=== PATIENT | male | born 1960 | race African-American/Black ===

== ENCOUNTER 2019-04-04 09:47 | Inpatient (IN) ==
[2019-04-04] MEDS ORDERED: SODIUM CHLORIDE 0.9% 1,000 ML IV STA (10:23)
[2019-04-04 10:40] LABS: Basophils % 0.2 % (0.0-0.8); Hemoglobin 15.6 GM/DL (14.0-18.0); Immature Granulocytes % 0.5 %; Immature Granulocytes Absolute 0.09 #; Lymphocytes # 1.8 10*3/uL (1.4-4.0); Lymphocytes % 10.2 % (21.2-54.2); Mean Corpuscular HGB Conc 31.2 GM/DL (32-36); Mean Corpuscular Volume 94.3 FL (87-102); Mean Platelet Volume 10.6 FL (9.6-12.0); Monocytes % 7.7 % (1.7-12.7); Neutrophils % 81.4 % (38.7-73.9); Platelet Count 247 T/CUMM (130-400); Red Cell Distribution Width 13.5 % (9.3-17.3); White Blood Count 17.4 T/CUMM (4-12)
[2019-04-04] MEDS ORDERED: INSULIN REGULAR 100 UNIT/ML IV STA (10:58)
[2019-04-04 11:00] LABS: Alanine Aminotransferase 23 U/L (16-61); Albumin 4.3 G/DL (3.4-5.0); Alkaline Phosphatase 130 U/L (45-117); Aspartate Amino Transferase 46 U/L (0-37); Blood Urea Nitrogen 47 MG/DL (7-18); Estimated Glom Filtration Rate 42 ML/MIN; Osmolality,Calculated 356.3 MOS/KG (273-304); Total Protein 9.7 G/DL (6.4-8.3)
[2019-04-04 11:02] LABS: Glucose 783 MG/DL (74-106)
[2019-04-04 11:21] LABS: Apearance,Urine CLOUDY (Clear); Bacteria,Urine Many /HPF (Few); Bilirubin,Urine Negative (Negative); Blood, Urine Large mg/dL (Negative); Glucose,Urine (UA) >=500 mg/dL (Negative); Ketones,Urine 20 mg/dL (Negative); Mucus,Urine Occasional /LPF (Occasional); Nitrite,Urine Negative (Negative); Protein,Urine 100 MG/DL; RBC,Urine 14 /HPF (0-4); Squamous Epithelial Cell,Urine Occasional /HPF (0-10); Urine Color Yellow (Yellow); Urine Urobilinogen < 2.0 EU/DL (0.2-1.0); WBC,Urine 129 /HPF (0-6)
[2019-04-04] MEDS ORDERED: SODIUM CHLORIDE 0.9% 3,650 ML IV ONE (11:35)
[2019-04-04] MEDS: PIPERACILLIN/TAZOBACTAM 3,375 MG in SODIUM CHLORIDE 0.9% 100 ML IV SCH ×2 (11:51→21:03)
[2019-04-04] MEDS ORDERED: MAGNESIUM SULF RIDER 4 GM in PREMIX 1 EACH IV PRN (12:57)
[2019-04-04] MEDS ORDERED: DEXTROSE 10% 1,000 ML BAG IV PRN (12:57)
[2019-04-04] MEDS ORDERED: SODIUM BICARB INJ 100 MEQ in STERILE WATER INJ 400 ML IV PRN (12:57)
[2019-04-04] MEDS ORDERED: MAGNESIUM SULF RIDER 2 GM in PREMIX 1 EACH IV PRN (12:57)
[2019-04-04] MEDS ORDERED: DEXTROSE 10% 250 ML BAG IV PRN (12:57)
[2019-04-04] MEDS ORDERED: levETIRAcetam 500 MG TABLET PO SCH (13:30)
[2019-04-04] MEDS: SODIUM CHLORIDE 0.45% 1,000 ML IV SCH ×3 (13:43→21:27)
[2019-04-04] MEDS ORDERED: PHENobarbital 30 MG TABLET PO SCH ×2 (14:00→21:00)
[2019-04-04] MEDS: cefTRIAXone 1,000 MG in SYRINGE 1 EACH IV SCH (14:08)
[2019-04-04] MEDS: ENOXAPARIN 30 MG/0.3 ML SYRINGE SUBCUT SCH (14:08)
[2019-04-04] MEDS: INSULIN REGULAR DRIP 100 ML IV SCH ×2 (14:18→23:13)
[2019-04-04] MEDS: LACTULOSE 20 GM/30 ML UDCUP PO SCH ×2 (14:19→21:04)
[2019-04-04] MEDS: carBAMazepine 200 MG TABLET PO SCH ×2 (14:40→21:04)
[2019-04-04] MEDS: PHENobarbital 65 MG/1 ML VIAL IV SCH (15:00)
[2019-04-04 15:11] LABS: Calcium 8.4 MG/DL (8.5-10.1)
[2019-04-04] MEDS ORDERED: POTASSIUM CHLORIDE IV ONE (16:00)
[2019-04-04] MEDS ORDERED: SODIUM CHLORIDE 0.9% IV ONE (16:00)
[2019-04-04 16:09] LABS: ABG Base Excess -4.4 MMOL/L (-2.5-2.5); ABG HCO3 21.3 MMOL/L (20-26); ABG Oxygen Saturation 94.7 % (95-100); ABG PCO2 41.8 MM HG (35-48); ABG PH 7.326 (7.35-7.45); ABG PO2 85.3 MM HG (80-95); ABG TCO2 22.6 MMOL/L (23-27); Allen Test Positive
[2019-04-04] MEDS ORDERED: POTASSIUM CHLORIDE INJ 50 MEQ in SODIUM CHLORIDE 0.9% 500 ML IV ONE (18:00)
[2019-04-04 18:51] LABS: Calcium 9.6 MG/DL (8.5-10.1); Osmolality,Calculated 341.9 MOS/KG (273-304)
[2019-04-04] MEDS ORDERED: PHENobarbital 65 MG/1 ML VIAL IV SCH (21:00)
[2019-04-04 21:21] LABS: Calcium 7.7 MG/DL (8.5-10.1)
[2019-04-04] MEDS ORDERED: POTASSIUM CHLORIDE INJ 40 MEQ in SODIUM CHLORIDE 0.9% 380 ML IV ONE (23:00)
[2019-04-05] MEDS: SODIUM CHLORIDE 0.45% 1,000 ML IV SCH (01:31)
[2019-04-05 02:10] LABS: Calcium 8.7 MG/DL (8.5-10.1); Osmolality,Calculated 335.3 MOS/KG (273-304)
[2019-04-05] MEDS: PIPERACILLIN/TAZOBACTAM 3,375 MG in SODIUM CHLORIDE 0.9% 100 ML IV SCH (04:14)
[2019-04-05 04:21] LABS: Basophils % 0.2 % (0.0-0.8); Hematocrit 42.9 VOL% (42.0-52.0); Hemoglobin 13.3 GM/DL (14.0-18.0); Immature Granulocytes % 0.3 %; Immature Granulocytes Absolute 0.05 #; Lymphocytes # 2.7 10*3/uL (1.4-4.0); Lymphocytes % 16.7 % (21.2-54.2); Mean Corpuscular Volume 95.3 FL (87-102); Mean Platelet Volume 10.5 FL (9.6-12.0); Monocytes % 8.9 % (1.7-12.7); Neutrophils % 73.9 % (38.7-73.9); Platelet Count 137 T/CUMM (130-400); Red Cell Distribution Width 13.7 % (9.3-17.3); White Blood Count 16.1 T/CUMM (4-12)
[2019-04-05 04:37] LABS: Calcium 8.6 MG/DL (8.5-10.1); Osmolality,Calculated 335.9 MOS/KG (273-304)
[2019-04-05] MEDS: DEXTROSE 5% 1,000 ML IV SCH ×3 (04:55→17:42)
[2019-04-05 08:31] LABS: Calcium 8.6 MG/DL (8.5-10.1); Osmolality,Calculated 331.5 MOS/KG (273-304)
[2019-04-05] MEDS: PHENobarbital 65 MG/1 ML VIAL IV SCH (09:06)
[2019-04-05] MEDS: INSULIN REGULAR DRIP 100 ML IV SCH ×2 (10:58→13:04)
[2019-04-05] MEDS: carBAMazepine 200 MG TABLET PO SCH ×3 (11:11→20:29)
[2019-04-05] MEDS ORDERED: MORPHINE 4 MG/1 ML VIAL IV PRN (14:04)
[2019-04-05] MEDS: cefTRIAXone 1,000 MG in SYRINGE 1 EACH IV SCH (14:18)
[2019-04-05] MEDS: ENOXAPARIN 30 MG/0.3 ML SYRINGE SUBCUT SCH (14:18)
[2019-04-05] MEDS ORDERED: INSULIN GLARGINE 100 UNIT/ML SUBCUT SCH (16:00)
[2019-04-05] MEDS: MORPHINE 4 MG/1 ML VIAL IV PRN ×2 (16:31→18:34)
[2019-04-05] MEDS: INSULIN REGULAR 100 UNIT/ML SUBCUT SCH (20:28)
[2019-04-05] MEDS: PHENobarbital 30 MG TABLET PO SCH (20:29)
[2019-04-05] MEDS: levETIRAcetam 500 MG TABLET PO SCH (20:29)
[2019-04-06] MEDS: INSULIN REGULAR 100 UNIT/ML SUBCUT SCH ×6 (00:07→21:04)
[2019-04-06] MEDS: DEXTROSE 5% 1,000 ML IV SCH ×4 (00:07→11:50)
[2019-04-06 06:14] LABS: Basophils % 0.3 % (0.0-0.8); Eosinophils # 0.1 10*3/uL (0.0-0.87); Eosinophils % 0.5 % (0.00-10.9); Hematocrit 39.6 VOL% (42.0-52.0); Hemoglobin 12.4 GM/DL (14.0-18.0); Immature Granulocytes % 0.5 %; Immature Granulocytes Absolute 0.05 #; Lymphocytes % 27.8 % (21.2-54.2); Mean Corpuscular HGB Conc 31.3 GM/DL (32-36); Mean Corpuscular Volume 93.8 FL (87-102); Mean Platelet Volume 10.9 FL (9.6-12.0); Monocytes % 7.6 % (1.7-12.7); NRBC # 0.02 10*3/uL; Neutrophils % 63.3 % (38.7-73.9); Platelet Count 98 T/CUMM (130-400); Red Blood Count 4.22 MC/CUMM (3.8-5.5); Red Cell Distribution Width 13.4 % (9.3-17.3); White Blood Count 10.6 T/CUMM (4-12)
[2019-04-06 06:37] LABS: Prealbumin 14.7 MG/DL (20-40)
[2019-04-06 06:40] LABS: Hypochromasia 1+; Lymphocytes 33 % (20-55); Segmented Neutrophils 61 % (50-85); Total Cells Counted 100
[2019-04-06 06:41] LABS: Microcytosis 1+; Ovalocytes 1+; Platelet Estimate Decreased
[2019-04-06] MEDS: MORPHINE 4 MG/1 ML VIAL IV PRN (07:27)
[2019-04-06 07:33] LABS: Albumin 2.8 G/DL (3.4-5.0); Bilirubin,Total 1.3 MG/DL (0.2-1.0); Calcium 8.1 MG/DL (8.5-10.1); Osmolality,Calculated 315.4 MOS/KG (273-304); Total Protein 6.9 G/DL (6.4-8.3)
[2019-04-06] MEDS: levETIRAcetam 500 MG TABLET PO SCH ×2 (08:17→21:04)
[2019-04-06] MEDS: carBAMazepine 200 MG TABLET PO SCH ×3 (08:17→21:04)
[2019-04-06] MEDS: PHENobarbital 30 MG TABLET PO SCH ×2 (08:17→21:04)
[2019-04-06] MEDS ORDERED: MAGNESIUM CITRATE 300 ML BOTTLE PER TUBE ONE (08:30)
[2019-04-06] MEDS ORDERED: INSULIN REGULAR ** CONC 500 UNIT/ML ** 20 ML VIAL SUBCUT SCH (09:00)
[2019-04-06] MEDS: LACTULOSE 20 GM/30 ML UDCUP PO SCH (11:07)
[2019-04-06] MEDS ORDERED: INSULIN LISPRO 100 UNIT/ML SUBCUT SCH (12:00)
[2019-04-06] MEDS: INSULIN LISPRO 100 UNIT/ML SUBCUT SCH ×2 (12:04→17:11)
[2019-04-06] MEDS: carvediloL 6.25 MG TABLET PO SCH ×2 (12:04→21:04)
[2019-04-06] MEDS: POTASSIUM CHLORIDE RIDER 10 MEQ in PREMIX 1 EACH IV PRN ×2 (13:05→14:04)
[2019-04-06] MEDS: ENOXAPARIN 40 MG/0.4 ML SYRINGE SUBCUT SCH (13:06)
[2019-04-06] MEDS: cefTRIAXone 1,000 MG in SYRINGE 1 EACH IV SCH (13:06)
[2019-04-06 20:14] LABS: Calcium 7.7 MG/DL (8.5-10.1); Osmolality,Calculated 306.1 MOS/KG (273-304)
[2019-04-07] MEDS: INSULIN LISPRO 100 UNIT/ML SUBCUT SCH ×3 (00:19→12:37)
[2019-04-07] MEDS: INSULIN REGULAR 100 UNIT/ML SUBCUT SCH ×5 (00:19→16:40)
[2019-04-07] MEDS: DEXTROSE 5% 1,000 ML IV SCH ×2 (05:10→17:31)
[2019-04-07 06:20] LABS: Basophils % 0.2 % (0.0-0.8); Eosinophils # 0.2 10*3/uL (0.0-0.87); Eosinophils % 2.2 % (0.00-10.9); Hematocrit 36.5 VOL% (42.0-52.0); Hemoglobin 11.4 GM/DL (14.0-18.0); Immature Granulocytes % 0.6 %; Immature Granulocytes Absolute 0.05 #; Lymphocytes # 1.8 10*3/uL (1.4-4.0); Lymphocytes % 20.1 % (21.2-54.2); Mean Corpuscular HGB Conc 31.2 GM/DL (32-36); Mean Corpuscular Volume 92.4 FL (87-102); Mean Platelet Volume 11.7 FL (9.6-12.0); Monocytes % 6.8 % (1.7-12.7); NRBC # 0.02 10*3/uL; Neutrophils % 70.1 % (38.7-73.9); Platelet Count 79 T/CUMM (130-400); Red Blood Count 3.95 MC/CUMM (3.8-5.5); Red Cell Distribution Width 13.2 % (9.3-17.3)
[2019-04-07 06:34] LABS: Albumin 2.7 G/DL (3.4-5.0); Bilirubin,Total 0.4 MG/DL (0.2-1.0); Calcium 7.8 MG/DL (8.5-10.1); Osmolality,Calculated 301.7 MOS/KG (273-304); Total Protein 6.7 G/DL (6.4-8.3)
[2019-04-07 06:49] LABS: Hypochromasia 1+; Ovalocytes Slight; Platelet Estimate Decreased
[2019-04-07] MEDS: ENOXAPARIN 40 MG/0.4 ML SYRINGE SUBCUT SCH (09:28)
[2019-04-07] MEDS: PHENobarbital 30 MG TABLET PO SCH (09:28)
[2019-04-07] MEDS: levETIRAcetam 500 MG TABLET PO SCH (09:28)
[2019-04-07] MEDS: carvediloL 6.25 MG TABLET PO SCH (09:28)
[2019-04-07] MEDS: cefTRIAXone 1,000 MG in SYRINGE 1 EACH IV SCH (09:29)
[2019-04-07] MEDS: carBAMazepine 200 MG TABLET PO SCH ×2 (09:30→16:39)
[2019-04-07] MEDS: ACETAMINOPHEN 325 MG TABLET PO PRN ×2 (12:36→16:39)
[2019-04-08] MEDS: INSULIN REGULAR 100 UNIT/ML SUBCUT SCH ×7 (06:40→21:08)
[2019-04-08 07:00] LABS: Basophils % 0.4 % (0.0-0.8); Eosinophils # 0.1 10*3/uL (0.0-0.87); Eosinophils % 1.2 % (0.00-10.9); Hematocrit 33.9 VOL% (42.0-52.0); Hemoglobin 10.6 GM/DL (14.0-18.0); Immature Granulocytes % 0.6 %; Immature Granulocytes Absolute 0.05 #; Lymphocytes # 1.3 10*3/uL (1.4-4.0); Lymphocytes % 16.2 % (21.2-54.2); Mean Corpuscular HGB Conc 31.3 GM/DL (32-36); Mean Corpuscular Volume 92.9 FL (87-102); Mean Platelet Volume 11.8 FL (9.6-12.0); Monocytes % 6.2 % (1.7-12.7); Neutrophils % 75.4 % (38.7-73.9); Red Blood Count 3.65 MC/CUMM (3.8-5.5); Red Cell Distribution Width 12.8 % (9.3-17.3); White Blood Count 8.2 T/CUMM (4-12)
[2019-04-08] MEDS: carvediloL 6.25 MG TABLET PO SCH ×3 (07:05→20:45)
[2019-04-08] MEDS: levETIRAcetam 500 MG TABLET PO SCH ×3 (07:05→20:45)
[2019-04-08 07:06] LABS: Platelet Count 60 T/CUMM (130-400)
[2019-04-08] MEDS: PHENobarbital 30 MG TABLET PO SCH ×3 (07:06→20:46)
[2019-04-08] MEDS: INSULIN GLARGINE 100 UNIT/ML SUBCUT SCH ×3 (07:06→21:07)
[2019-04-08] MEDS: DEXTROSE 5% 1,000 ML IV SCH (07:07)
[2019-04-08] MEDS: carBAMazepine 200 MG TABLET PO SCH ×4 (07:07→20:45)
[2019-04-08 07:20] LABS: Albumin 2.7 G/DL (3.4-5.0); Bilirubin,Total 0.9 MG/DL (0.2-1.0); Osmolality,Calculated 297.1 MOS/KG (273-304); Total Protein 6.5 G/DL (6.4-8.3)
[2019-04-08 09:18] LABS: Hypochromasia 1+; Ovalocytes Few; Polychromasia Slight
[2019-04-08 09:19] LABS: Platelet Estimate Decreased
[2019-04-08] MEDS ORDERED: DEXTROSE 50% 25 GM/50 ML VIAL IV PRN (10:22)
[2019-04-08] MEDS ORDERED: GLUCAGON 1 MG VIAL IM PRN (10:22)
[2019-04-08] MEDS: ENOXAPARIN 40 MG/0.4 ML SYRINGE SUBCUT SCH (10:46)
[2019-04-08] MEDS: cefTRIAXone 1,000 MG in SYRINGE 1 EACH IV SCH (10:49)
[2019-04-08] MEDS: ACETAMINOPHEN 325 MG TABLET PO PRN (10:53)
[2019-04-08] MEDS: SODIUM CHLORIDE 0.9% 1,000 ML IV SCH (12:51)
[2019-04-09] MEDS: SODIUM CHLORIDE 0.9% 1,000 ML IV SCH ×3 (01:38→16:15)
[2019-04-09 07:17] LABS: Calcium 7.7 MG/DL (8.5-10.1); Osmolality,Calculated 288.1 MOS/KG (273-304)
[2019-04-09] MEDS: cefTRIAXone 1,000 MG in SYRINGE 1 EACH IV SCH (08:14)
[2019-04-09] MEDS: INSULIN GLARGINE 100 UNIT/ML SUBCUT SCH ×2 (08:14→20:37)
[2019-04-09] MEDS: INSULIN REGULAR 100 UNIT/ML SUBCUT SCH ×4 (08:15→20:38)
[2019-04-09] MEDS: carvediloL 6.25 MG TABLET PO SCH ×2 (08:15→20:37)
[2019-04-09] MEDS: carBAMazepine 200 MG TABLET PO SCH ×3 (08:15→20:36)
[2019-04-09] MEDS: levETIRAcetam 500 MG TABLET PO SCH ×2 (08:15→20:37)
[2019-04-09] MEDS: ENOXAPARIN 40 MG/0.4 ML SYRINGE SUBCUT SCH (08:15)
[2019-04-09] MEDS: PHENobarbital 30 MG TABLET PO SCH ×2 (08:16→20:37)
[2019-04-09 11:12] LABS: Basophils % 0.1 % (0.0-0.8); Eosinophils # 0.1 10*3/uL (0.0-0.87); Eosinophils % 1.2 % (0.00-10.9); Hematocrit 32.6 VOL% (42.0-52.0); Hemoglobin 10.3 GM/DL (14.0-18.0); Immature Granulocytes % 1.2 %; Lymphocytes # 1.3 10*3/uL (1.4-4.0); Lymphocytes % 14.7 % (21.2-54.2); Mean Corpuscular HGB Conc 31.6 GM/DL (32-36); Mean Corpuscular Volume 91.1 FL (87-102); Monocytes % 6.8 % (1.7-12.7); Platelet Count 90 T/CUMM (130-400); Red Blood Count 3.58 MC/CUMM (3.8-5.5); Red Cell Distribution Width 12.7 % (9.3-17.3); White Blood Count 8.6 T/CUMM (4-12)
[2019-04-09 11:46] LABS: Platelet Estimate Decreased
[2019-04-10] MEDS: SODIUM CHLORIDE 0.9% 1,000 ML IV SCH ×2 (03:40→16:46)
[2019-04-10 06:41] LABS: Basophils % 0.4 % (0.0-0.8); Eosinophils # 0.1 10*3/uL (0.0-0.87); Eosinophils % 1.2 % (0.00-10.9); Hemoglobin 9.3 GM/DL (14.0-18.0); Immature Granulocytes % 1.8 %; Immature Granulocytes Absolute 0.12 #; Lymphocytes # 1.5 10*3/uL (1.4-4.0); Lymphocytes % 22.3 % (21.2-54.2); Mean Corpuscular Volume 93.8 FL (87-102); Mean Platelet Volume 11.3 FL (9.6-12.0); Monocytes % 10.5 % (1.7-12.7); Neutrophils % 63.8 % (38.7-73.9); Platelet Count 120 T/CUMM (130-400); Red Cell Distribution Width 12.7 % (9.3-17.3); White Blood Count 6.8 T/CUMM (4-12)
[2019-04-10 06:54] LABS: Calcium 7.7 MG/DL (8.5-10.1); Osmolality,Calculated 288.8 MOS/KG (273-304)
[2019-04-10 06:59] LABS: Prealbumin 8.6 MG/DL (20-40)
[2019-04-10] MEDS: levETIRAcetam 500 MG TABLET PO SCH ×2 (09:14→21:13)
[2019-04-10] MEDS: INSULIN GLARGINE 100 UNIT/ML SUBCUT SCH ×2 (09:14→21:17)
[2019-04-10] MEDS: PHENobarbital 30 MG TABLET PO SCH ×2 (09:14→21:13)
[2019-04-10] MEDS: INSULIN REGULAR 100 UNIT/ML SUBCUT SCH ×4 (09:15→21:17)
[2019-04-10] MEDS: ENOXAPARIN 40 MG/0.4 ML SYRINGE SUBCUT SCH (09:15)
[2019-04-10] MEDS: carBAMazepine 200 MG TABLET PO SCH ×3 (09:15→21:13)
[2019-04-10] MEDS: carvediloL 6.25 MG TABLET PO SCH ×2 (09:15→21:14)
[2019-04-10] MEDS: cefTRIAXone 1,000 MG in SYRINGE 1 EACH IV SCH (09:16)
[2019-04-10] MEDS ORDERED: POTASSIUM CHLORIDE 20 MEQ TABLET PO SCH (10:00)
[2019-04-10] MEDS: POTASSIUM CHLORIDE 20 MEQ/15 ML UDCUP PO SCH ×2 (10:30→15:23)
[2019-04-10] MEDS ORDERED: POTASSIUM CHLORIDE 20 MEQ/15 ML UDCUP PO ONE (15:26)
[2019-04-11] MEDS: SODIUM CHLORIDE 0.9% 1,000 ML IV SCH (05:36)
[2019-04-11] MEDS: levETIRAcetam 500 MG TABLET PO SCH ×2 (08:56→20:55)
[2019-04-11] MEDS: INSULIN REGULAR 100 UNIT/ML SUBCUT SCH ×4 (08:57→20:57)
[2019-04-11] MEDS: carvediloL 6.25 MG TABLET PO SCH ×2 (08:57→20:55)
[2019-04-11] MEDS: PHENobarbital 30 MG TABLET PO SCH ×2 (08:57→21:03)
[2019-04-11] MEDS: carBAMazepine 200 MG TABLET PO SCH ×3 (08:57→20:55)
[2019-04-11] MEDS: ENOXAPARIN 40 MG/0.4 ML SYRINGE SUBCUT SCH (08:58)
[2019-04-11] MEDS: cefTRIAXone 1,000 MG in SYRINGE 1 EACH IV SCH (08:58)
[2019-04-11] MEDS: INSULIN GLARGINE 100 UNIT/ML SUBCUT SCH ×2 (08:58→20:57)
[2019-04-12 06:18] LABS: Calcium 7.9 MG/DL (8.5-10.1); Osmolality,Calculated 279.3 MOS/KG (273-304)
[2019-04-12] MEDS: ENOXAPARIN 40 MG/0.4 ML SYRINGE SUBCUT SCH (09:05)
[2019-04-12] MEDS: INSULIN GLARGINE 100 UNIT/ML SUBCUT SCH ×2 (09:05→21:58)
[2019-04-12] MEDS: PHENobarbital 30 MG TABLET PO SCH ×2 (09:05→21:59)
[2019-04-12] MEDS: carBAMazepine 200 MG TABLET PO SCH ×3 (09:05→21:58)
[2019-04-12] MEDS: levETIRAcetam 500 MG TABLET PO SCH ×2 (09:06→21:59)
[2019-04-12] MEDS: INSULIN REGULAR 100 UNIT/ML SUBCUT SCH ×4 (09:06→21:57)
[2019-04-12] MEDS: carvediloL 6.25 MG TABLET PO SCH ×2 (09:06→21:58)
[2019-04-12] MEDS: POTASSIUM CHLORIDE RIDER 10 MEQ in PREMIX 1 EACH IV PRN ×4 (09:17→15:59)
[2019-04-12] MEDS: POTASSIUM CHLORIDE 20 MEQ TABLET PO SCH ×2 (17:20→23:49)
[2019-04-13 07:48] VITALS: BP 150/97
[2019-04-13] MEDS: INSULIN GLARGINE 100 UNIT/ML SUBCUT SCH (08:36)
[2019-04-13] MEDS: ENOXAPARIN 40 MG/0.4 ML SYRINGE SUBCUT SCH (08:36)
[2019-04-13] MEDS: PHENobarbital 30 MG TABLET PO SCH (08:36)
[2019-04-13] MEDS: carBAMazepine 200 MG TABLET PO SCH (08:36)
[2019-04-13] MEDS: carvediloL 6.25 MG TABLET PO SCH (08:36)
[2019-04-13] MEDS: levETIRAcetam 500 MG TABLET PO SCH (08:36)
[2019-04-13] MEDS: INSULIN REGULAR 100 UNIT/ML SUBCUT SCH (09:34)
== END 2019-04-13 09:35 | DRG 871 ==
LOC: EDUNIT# → EDBD → N.ED 09:47 → SUATTDRO 12:01 → N.EDINP 12:01 → SUPCPDRO 12:01 → N.ICU 12:34 → N.2E 04-06 17:30
PROVIDERS: ADMIT Internal Medicine; ATTEND Family Medicine